=== PATIENT | female | born 1940 | race Caucasian/White ===

== ENCOUNTER 2020-09-27 16:22 | Inpatient (IN) | payer MEDICARE, OTHER ==
[~2020-09-27] VITALS: Ht 170.2 cm; Wt 70.4 kg
[~2020-09-27 16:22] MED LIST: ASPIRIN CHEWABL81 MG PO; BENZONATATE100 MG PO; CLINDAMYCIN HC300 MG PO; DILTIAZEM 24HR180 M1 PO; DILTIAZEM ER180 M2 PO; ELIQUIS 5 MG TAB5 MG PO; ESCITALOPRAM OX10 MG PO; KLOR-CON M1010 MEQ PO; LASIX20 MG PO; LEVOFLOXACIN500 MG PO; LIPITOR TAB 2020 MG PO; LORATADINE10 MG PO; NORCO 7.5-3251 EACH PO; OMEPRAZOLE20 MG PO; PRAVACHOL40 MG PO; PREDNISONE 10 M10 MG PO; PROMETHAZINE12.5 M1 PO; PROVENTIL HFA6.7 GM INH; SPIRIVA18 MCG INH; SYMBICORT 16010.2 GM INH; SYMBICORT 80-10.2 GM INH; TOBRADEX EYE O3.5 GM EYEBOTH; VALIUM 5 MG TAB5 MG PO; VENTOLIN/PROVE0.5 ML INH
[2020-09-27 17:44] LABS: HEMOGLOBIN 11.9 gm/dl (12.3-15.3); RED BLOOD COUNT 4.09 M/UL (4.00-5.10); WHITE BLOOD COUNT 8.6 K/UL (4.5-11.0)
[2020-09-27 18:11] LABS: BUN/CREATININE RATIO 19 (0-10)
[2020-09-27 22:56] LABS: BORDETELLA PARAPERTUSSIS Not Detected (Not Detectd); BORDETELLA PERTUSSIS Not Detected (Not Detectd); CHLAMYDIA PNEUMONIAE Not Detected (Not Detectd); CORONAVIRUS HKU1 Not Detected (Not Detectd); CORONAVIRUS NL63 Not Detected (Not Detectd); CORONAVIRUS OC43 Not Detected (Not Detectd); CORONOAVIRUS 229E Not Detected (Not Detectd); HUMAN METAPNEUMOVIRUS Not Detected (Not Detectd); HUMAN RHINOVIRUS/ENTEROVIRUS Not Detected (Not Detectd); INFLUENZA A Not Detected (Not Detectd); INFLUENZA B Not Detected (Not Detectd); MYCOPLASMA PNEUMONIAE Not Detected (Not Detectd); PARAINFLUENZA VIRUS 1 Not Detected (Not Detectd); PARAINFLUENZA VIRUS 2 Not Detected (Not Detectd); PARAINFLUENZA VIRUS 3 Not Detected (Not Detectd); PARAINFLUENZA VIRUS 4 Not Detected (Not Detectd); RESPIRATORY SYNCYTIAL VIRUS Not Detected (Not Detectd)
[2020-09-28] LABS: SARS-CoV-2 NOT DETECTED (Not Detectd)
[2020-09-28] MEDS ORDERED: ZOFRAN 4 MG TAB4 MG PO (02:34)
[2020-09-28 06:16] LABS: HEMOGLOBIN 11.6 gm/dl (12.3-15.3); RED BLOOD COUNT 3.99 M/UL (4.00-5.10)
[2020-09-28 06:18] LABS: WHITE BLOOD COUNT 6.4 K/UL (4.5-11.0)
[2020-09-29 02:57] LABS: HEMOGLOBIN 12.6 gm/dl (12.3-15.3); RED BLOOD COUNT 4.37 M/UL (4.00-5.10); WHITE BLOOD COUNT 4.9 K/UL (4.5-11.0)
[2020-09-30 06:13] LABS: HEMOGLOBIN 12.4 gm/dl (12.3-15.3); RED BLOOD COUNT 4.35 M/UL (4.00-5.10)
[2020-09-30 06:14] LABS: WHITE BLOOD COUNT 8.7 K/UL (4.5-11.0)
[2020-10-01 06:03] LABS: HEMOGLOBIN 11.8 gm/dl (12.3-15.3); RED BLOOD COUNT 4.05 M/UL (4.00-5.10); WHITE BLOOD COUNT 7.2 K/UL (4.5-11.0)
[2020-10-02 09:04] LABS: HEMOGLOBIN 13.2 gm/dl (12.3-15.3)
[2020-10-02 09:09] LABS: RED BLOOD COUNT 4.53 M/UL (4.00-5.10); WHITE BLOOD COUNT 10.9 K/UL (4.5-11.0)
--- NOTE | 2020-10-02 09:35 | NUR ---
PATIENT NOTED TO BE CRYING, RATING HER PAIN A LEVEL 10 LOCALIZED TO THE RIGHT UPPER AND LOWER QUADRANTS OF HER ABDOMEN. RN AUSCULTATED ALL FOUR ABDOMINAL QUADRANTS AND HYPERACTIVE BOWEL SOUNDS IN ALL. RN LIGHTLY PALPATED RIGHT UPPER AND LOWER QUADRANTS OF ABDOMEN AND FELT A SOFT, FIRM MASS. PATIENT STATED THAT PALPATION CAUSED HER PAIN WELL. RN NOTIFIED DR. QUARLES WHO ORDERED NEW PAIN MEDICATIONS AND STATED HE WOULD ASSESS HER THEN GO FROM THERE.
--- NOTE | 2020-10-02 13:20 | NUR ---
RN REASSESSED PATIENT'S ABDOMEN AND IT WAS NOTED TO BE SIGNIFICANTLY MORE FIRM AND DISTENDED. PENDING CT OF ABDOMEN.
[2020-10-03 06:24] LABS: HEMOGLOBIN 12.1 gm/dl (12.3-15.3); RED BLOOD COUNT 4.2 M/UL (4.00-5.10)
[2020-10-03 06:26] LABS: WHITE BLOOD COUNT 8.1 K/UL (4.5-11.0)
[2020-10-03] MEDS ORDERED: LASIX20 MG PO (11:49)
== END 2020-10-03 14:14 | disposition home health service (06) | DRG 291 ==
LOC: ER1 16:22 → MED SURG 4 21:56 → CDU 21:56 → MED SURG 4 09-28 01:21
PROVIDERS: Internal Medicine; Physician Assistant; Student in an Organized Health Care Education/Training Program; ADMIT Internal Medicine
PROC: B24BZZZ Ultrasonography of Heart with Aorta (ICD-10-PCS; principal; 2020-09-30)
PROC: 5A09457 Assistance with Respiratory Ventilation, 24-96 Consecutive Hours, Continuous Positive Airway Pressure (ICD-10-PCS; 2020-09-30)
DX: I11.0 Hypertensive heart disease with heart failure (principal); J96.21 Acute and chronic respiratory failure with hypoxia; J96.22 Acute and chronic respiratory failure with hypercapnia; J44.1 Chronic obstructive pulmonary disease with (acute) exacerbation; N17.9 Acute kidney failure, unspecified; I47.1 Supraventricular tachycardia; I50.33 Acute on chronic diastolic (congestive) heart failure; E87.6 Hypokalemia; T50.1X5A Adverse effect of loop [high-ceiling] diuretics, initial encounter; I27.81 Cor pulmonale (chronic); D64.9 Anemia, unspecified; Z20.822 Contact with and (suspected) exposure to COVID-19; I25.10 Atherosclerotic heart disease of native coronary artery without angina pectoris; I48.0 Paroxysmal atrial fibrillation; G47.33 Obstructive sleep apnea (adult) (pediatric); F41.9 Anxiety disorder, unspecified; G89.29 Other chronic pain; M54.9 Dorsalgia, unspecified; K21.9 Gastro-esophageal reflux disease without esophagitis; I34.0 Nonrheumatic mitral (valve) insufficiency; Z79.82 Long term (current) use of aspirin; Z88.0 Allergy status to penicillin; Z90.710 Acquired absence of both cervix and uterus; Z90.49 Acquired absence of other specified parts of digestive tract; Z87.891 Personal history of nicotine dependence; Z83.3 Family history of diabetes mellitus; Z80.8 Family history of malignant neoplasm of other organs or systems; Z99.81 Dependence on supplemental oxygen; Z79.01 Long term (current) use of anticoagulants; Z88.8 Allergy status to other drugs, medicaments and biological substances; Z95.1 Presence of aortocoronary bypass graft; Z79.52 Long term (current) use of systemic steroids; Z79.899 Other long term (current) drug therapy
CPT/HCPCS: ECHO; 0240U; 36415; 36600; 71045; 80048; 80053; 81001; 82550; 82553; 82803; 83605; 83690; 83735; 83874; 83880; 84100; 84484; 85025; 85652; 86140; 87070; 87205; 87633; 93005; 93306; 94640; 94660; 94664; 94760; 96374; 99285; J1650; J1940; J2920

== ENCOUNTER 2021-01-04 15:10 | Inpatient (IN) | payer MEDICARE, OTHER ==
[~2021-01-04] VITALS: Ht 170.2 cm; Wt 70.6 kg
[~2021-01-04 15:10] MED LIST changes: +ZOFRAN 4 MG TAB4 MG PO
[2021-01-04 16:26] LABS: HEMOGLOBIN 12.6 gm/dl (12.3-15.3); RED BLOOD COUNT 4.25 M/UL (4.00-5.10); WHITE BLOOD COUNT 10.9 K/UL (4.5-11.0)
[2021-01-05 01:14] LABS: HEMOGLOBIN 11.5 gm/dl (12.3-15.3); RED BLOOD COUNT 3.86 M/UL (4.00-5.10); WHITE BLOOD COUNT 9.4 K/UL (4.5-11.0)
[2021-01-09] MEDS ORDERED: LASIX20 MG PO (11:47)
[2021-01-09] MEDS ORDERED: LEVOFLOXACIN500 MG PO (11:47)
--- NOTE | 2021-01-09 13:50 | NUR ---
PT REFUSED HER FLU VACCINATION PT STATES NOT FEELING WELL ENOGH FOR IT
== END 2021-01-09 14:05 | disposition home health service (06) | DRG 193 ==
LOC: ER1 15:10 → CDU 20:33 → MED SURG 4 20:33
PROVIDERS: Internal Medicine; Physician Assistant Medical; ADMIT Internal Medicine
DX: J18.9 Pneumonia, unspecified organism (principal); J96.21 Acute and chronic respiratory failure with hypoxia; Z20.822 Contact with and (suspected) exposure to COVID-19; J96.22 Acute and chronic respiratory failure with hypercapnia; J44.1 Chronic obstructive pulmonary disease with (acute) exacerbation; J44.0 Chronic obstructive pulmonary disease with (acute) lower respiratory infection; I50.32 Chronic diastolic (congestive) heart failure; I48.20 Chronic atrial fibrillation, unspecified; E87.2 Acidosis; K59.00 Constipation, unspecified; I48.0 Paroxysmal atrial fibrillation; G47.33 Obstructive sleep apnea (adult) (pediatric); I25.10 Atherosclerotic heart disease of native coronary artery without angina pectoris; F41.9 Anxiety disorder, unspecified; G89.29 Other chronic pain; E78.00 Pure hypercholesterolemia, unspecified; I11.0 Hypertensive heart disease with heart failure; E87.6 Hypokalemia; I48.91 Unspecified atrial fibrillation; Z79.01 Long term (current) use of anticoagulants; Z79.82 Long term (current) use of aspirin; Z79.899 Other long term (current) drug therapy; Z99.81 Dependence on supplemental oxygen; Z95.5 Presence of coronary angioplasty implant and graft; Z90.710 Acquired absence of both cervix and uterus; Z90.49 Acquired absence of other specified parts of digestive tract; Z88.6 Allergy status to analgesic agent; Z88.0 Allergy status to penicillin; Z88.8 Allergy status to other drugs, medicaments and biological substances; Z85.07 Personal history of malignant neoplasm of pancreas; Z87.891 Personal history of nicotine dependence
CPT/HCPCS: 36415; 36600; 71045; 71046; 80048; 80053; 80202; 82550; 82553; 82803; 82962; 83605; 83874; 83880; 84439; 84443; 84484; 85025; 87040; 87070; 87205; 93005; 94640; 94664; 94760; 96365; 96375; 97110-GP-CQ; 97116-GP-CQ; 97161; 97166; 97530-GP-CQ; 97535; 99285; J1650; J1940; J1956; J2920; J2930; J3370; J7030; J7050; J7070; U0002

== ENCOUNTER 2021-07-28 19:50 | Inpatient (IN) | payer MEDICARE, OTHER ==
[~2021-07-28] VITALS: Ht 170.2 cm; Wt 75.8 kg
[~2021-07-28 19:50] MED LIST changes: -ASPIRIN CHEWABL81 MG PO; +HYDROCODON-ACE1 EAC2 PO; -KLOR-CON M1010 MEQ PO; -NORCO 7.5-3251 EACH PO; +POTASSIUM CHLO20 ME1 PO
[2021-07-28 20:34] LABS: HEMOGLOBIN 11.8 gm/dl (12.3-15.3); RED BLOOD COUNT 3.94 M/UL (4.00-5.10); WHITE BLOOD COUNT 8.4 K/UL (4.5-11.0)
[2021-07-28 21:05] LABS: BUN/CREATININE RATIO 21 (0-10)
[2021-07-29] MEDS ORDERED: BREZTRI AEROS10.7 GM INH (18:51)
[2021-07-29] MEDS ORDERED: DULOXETINE HCL30 MG PO (18:52)
[2021-07-29] MEDS ORDERED: PROTONIX40 MG PO (18:53)
[2021-07-29] MEDS ORDERED: FLOVENT HFA12 G1 INH (18:53)
[2021-07-29] MEDS ORDERED: MIRALAX 119 GR119 GM PO (18:54)
[2021-07-29] MEDS ORDERED: PREDNISONE5 MG PO (18:55)
[2021-07-29] MEDS ORDERED: DILT-XR180 MG PO (18:57)
[2021-07-29] MEDS ORDERED: ASPIRIN CHEWABL81 MG PO (23:08)
[2021-07-31 07:26] LABS: BUN/CREATININE RATIO 31 (0-10)
[2021-07-31 07:32] LABS: HEMOGLOBIN 11.9 gm/dl (12.3-15.3); RED BLOOD COUNT 4.05 M/UL (4.00-5.10)
[2021-08-01 06:38] LABS: HEMOGLOBIN 11.9 gm/dl (12.3-15.3); RED BLOOD COUNT 4.02 M/UL (4.00-5.10); WHITE BLOOD COUNT 6.8 K/UL (4.5-11.0)
[2021-08-02 04:51] LABS: HEMOGLOBIN 12.6 gm/dl (12.3-15.3); RED BLOOD COUNT 4.26 M/UL (4.00-5.10)
[2021-08-02 04:59] LABS: WHITE BLOOD COUNT 11.3 K/UL (4.5-11.0)
[2021-08-03 04:57] LABS: HEMOGLOBIN 13.4 gm/dl (12.3-15.3); RED BLOOD COUNT 4.5 M/UL (4.00-5.10); WHITE BLOOD COUNT 10.4 K/UL (4.5-11.0)
[2021-08-04 04:55] LABS: HEMOGLOBIN 13.4 gm/dl (12.3-15.3); RED BLOOD COUNT 4.46 M/UL (4.00-5.10)
--- NOTE | 2021-08-04 10:49 | NUR ---
dr. weaver was on the floor making rounds earlier and reported patient complaints of constipation and was given a miralax. he acknowledged, will cont to monitor.
[2021-08-05 03:15] LABS: HEMOGLOBIN 12.3 gm/dl (12.3-15.3); RED BLOOD COUNT 4.19 M/UL (4.00-5.10); WHITE BLOOD COUNT 10.6 K/UL (4.5-11.0)
--- NOTE | 2021-08-06 10:27 | NUR ---
disimpact patient and had a large amount of soft stool patient grabiel well
--- NOTE | 2021-08-06 10:33 | NUR ---
@ [address] beal of receiving call from telemetry of patient having afib rvr. patient sitting up bsc unable to have bm. no order received. patient pulse up to 150's-160s with no s/sx of cardiac insufficiency. @ [address] beal via phone and reported that paitent pulse cont to go ti 160's per telemetry and patient unable to have bm and received order to disimpact patient and at this time with no concern of pulse elevated. patient continue to have bis s/sx of cardiac insufficiency.
[2021-08-06] MEDS ORDERED: DIAMOX 250 MG250 MG PO (14:00)
[2021-08-06] MEDS ORDERED: SPIRIVA RESPIMAT4 GM INH (14:00)
[2021-08-06] MEDS ORDERED: ALDACTONE25 MG PO (14:00)
[2021-08-06] MEDS ORDERED: POLYETHYLENE GL17 GM PO (14:05)
[2021-08-06] MEDS ORDERED: STIMULANT LAXA1 EACH PO (14:05)
--- NOTE | 2021-08-06 14:48 | NUR ---
report given to [facility] health admitting nurse.
== END 2021-08-06 17:12 | disposition home health service (06) | DRG 291 ==
LOC: ER1 19:50 → CDU 22:34 → M/S 22:34
PROVIDERS: Emergency Medicine; Internal Medicine Infectious Disease; ADMIT Internal Medicine
DX: I11.0 Hypertensive heart disease with heart failure (principal); J96.22 Acute and chronic respiratory failure with hypercapnia; I50.33 Acute on chronic diastolic (congestive) heart failure; J96.21 Acute and chronic respiratory failure with hypoxia; J44.1 Chronic obstructive pulmonary disease with (acute) exacerbation; I48.20 Chronic atrial fibrillation, unspecified; J98.11 Atelectasis; I25.10 Atherosclerotic heart disease of native coronary artery without angina pectoris; I48.0 Paroxysmal atrial fibrillation; R53.81 Other malaise; E87.6 Hypokalemia; F41.9 Anxiety disorder, unspecified; Z20.822 Contact with and (suspected) exposure to COVID-19; K59.00 Constipation, unspecified; G47.33 Obstructive sleep apnea (adult) (pediatric); Z95.1 Presence of aortocoronary bypass graft; Z79.899 Other long term (current) drug therapy; Z99.81 Dependence on supplemental oxygen; Z90.49 Acquired absence of other specified parts of digestive tract; Z90.710 Acquired absence of both cervix and uterus; Z88.0 Allergy status to penicillin; Z88.5 Allergy status to narcotic agent; Z88.8 Allergy status to other drugs, medicaments and biological substances; Z80.0 Family history of malignant neoplasm of digestive organs; Z79.01 Long term (current) use of anticoagulants; Z87.891 Personal history of nicotine dependence
CPT/HCPCS: 0241U; 36415; 36600; 71045; 71250; 80048; 80053; 80202; 81001; 82550; 82553; 82803; 83605; 83735; 83880; 84100; 84132; 84484; 85025; 85610; 85652; 86140; 87040; 87070; 87077; 87086; 87186; 87205; 93005; 94640; 94664; 94760; 96372; 96374; 96375; 96376; 97161; 97165; 97530-GP-CQ; 99285; G0378; J1120; J1650; J1940; J1956; J2920; J2930; J3370; J7050; J7070